=== PATIENT | male | born 1960 | race Caucasian/White ===

== ENCOUNTER 2022-07-04 17:31 | Inpatient (IN) | payer BC, OTHER ==
[~2022-07-04] VITALS: Ht 175.3 cm; Wt 79.6 kg
[2022-07-04 17:38] VITALS: BP_SYST 137
--- NOTE | 2022-07-04 17:41 | NUR ---
Patient triaged and placed in waiting room. VSS and patient appears in no acute distress at this time. Accompanied by , awaiting available bed, and Dr. Tima CRUZ notified of need for MSE.
[2022-07-04] MEDS ORDERED: KETOROLAC TROMETHAMINE 30 MG VIAL IM ONE (18:15)
--- NOTE | 2022-07-04 21:46 | NUR ---
Patient to ER bed 07 to gown for evaluation. Side rails up. Report given to EVY ALBRECHT
[2022-07-04] MEDS ORDERED: NACL 0.9% 1,000 ML IV ONE (23:15)
[2022-07-04] MEDS ORDERED: KETOROLAC TROMETHAMINE 30 MG VIAL IVP ONE (23:15)
--- NOTE | 2022-07-04 23:28 | NUR ---
# 20 gauge angiocath placed to RIGHT HAND. Use of asceptic technique. Opsite placed over site. Blood return noted. Blood for lab drawn from site. Flushed with 10 cc of normal saline. No evidence of infiltration noted. Patient tolerated well.
[2022-07-05 00:13] LABS: BILIRUBIN,URINE 1+ (NEGATIVE); BLOOD, URINE 1+ (NEGATIVE); CLARITY/URINE CLEAR (CLEAR); COLOR,URINE YELLOW (YELLOW); GLUCOSE,URINE NEGATIVE (NEGATIVE); KETONES,URINE 1+ (NEGATIVE); LEUKOCYTE ESTERASE ,URINE NEGATIVE (NEGATIVE); NITRITE, URINE NEGATIVE (NEGATIVE); PH,URINE 5.5 (5.0-8.0); PROTEIN URINE TRACE (NEGATIVE); UROBILINOGEN,URINE 0.2 (0.2-1.0)
[2022-07-05 00:58] LABS: BASOPHILS % (AUTO) 0.1 % (0.0-2.0); EOSINOPHILS % (AUTO) 0.1 % (0.0-4.0); HEMATOCRIT 42.6 % (36-54); HEMOGLOBIN 14.9 g/dL (14.0-18.0); LYMPHOCYTES # (AUTO) 0.9 K/uL (1.0-5.5); LYMPHOCYTES % (AUTO) 9.6 % (20.5-51.5); MEAN CORPUSCULAR HEMOGLOBIN 30 pg (27-31); MEAN CORPUSCULAR HGB CONC 35 % (32-36); MEAN CORPUSCULAR VOLUME 85 fL (79.0-98.0); MONOCYTES # (AUTO) 0.4 K/uL (0.0-1.0); NEUTROPHILS # (AUTO) 7.7 K/uL (1.8-7.7); NEUTROPHILS % (AUTO) 86.2 % (40.0-70.0); PLATELET COUNT (AUTO) 278 K/uL (130-430); RED CELL DISTRIBUTION WIDTH 13.3 % (9.0-15.0); WHITE BLOOD COUNT (AUTO) 8.9 K/uL (4.8-10.8)
[2022-07-05] MEDS ORDERED: D5/0.45 NS 1,000 ML IV SCH (01:15)
--- NOTE | 2022-07-05 01:26 | NUR ---
Awaiting bed availability at this time. Admitted under Dr. Jones. DX: Kidney stones. Patient requested to wash up first before the IVF administration. Patient reports tolerable abdominal pain rated 3/10. No s/s of distress observed.
--- NOTE | 2022-07-05 01:50 | NUR ---
Patient started on IVF D5 1/2 NS at 100 ml/hr, tolerating well. Awaiting bed availability.
--- NOTE | 2022-07-05 03:50 | NUR ---
Patient was transferred via [facility] to [place]/Tele in room 112 bed B. Patient ambulated from [facility] to his bed independently. Report given to EVY Portillo. Patient still reports mild abdominal pain but is tolerable. IV catheter gauge 20 on right hand remains intact and patent with IVF D5 1/2 NS at 100 ml/hr to continue. All needs attended. VS are within acceptable range.
[2022-07-05 03:56] VITALS: BP_SYST 124
--- NOTE | 2022-07-05 04:54 | NUR ---
Paged Dr. Jones. Christopher
[2022-07-05 05:00] LABS: CALCIUM 9.2 mg/dL (8.4-11.0); CREATININE 0.97 mg/dL (0.55-1.30); POTASSIUM 3.8 mmol/L (3.5-5.1)
[2022-07-05 05:01] LABS: ALBUMIN 3.9 g/dL (3.4-4.8); TOTAL BILIRUBIN 0.6 mg/dL (0.0-1.0)
[2022-07-05 07:00] VITALS: BP_SYST 124
[2022-07-05 08:00] VITALS: BP_SYST 124
[2022-07-05] MEDS ORDERED: ONDANSETRON HCL 4 MG/2 ML VIAL IVP PRN (10:45)
[2022-07-05] MEDS ORDERED: LORazepam 2 MG/ML VIAL IVP PRN (10:45)
[2022-07-05] MEDS ORDERED: IBUP-1970 PO (10:46)
[2022-07-05] MEDS ORDERED: TAMS-11 PO (10:46)
[2022-07-05] MEDS ORDERED: TRAM50TA2 PO (10:46)
[2022-07-05 12:16] VITALS: BP_SYST 128
[2022-07-05 12:28] VITALS: BP_SYST 128
--- NOTE | 2022-07-05 13:03 | NUR ---
PATIENT AOX4, BRP. DENIES ANY PAIN. APPROPRIATE MOOD, NONDISTRESS. RIGHT HAND SL REMOVED-NO BLEEDING NOTED. SENT ALL PERSONAL BELONGINGS WITH PATIENT. DISCHARGE INSTRUCTIONS GIVEN TO PATIENT. PATIENT TO MANAGER LIGHTING DC MEDS AT OWN PHARMACY. SIGNIFICANT OTHER AT BEDSIDE. PATIENT INFORMED AND AWARE TO FOLLOW UP WITH PCP WITHIN 1-5DAYS OF DC FROM HOSPITAL-PT VERBALIZED UNDERSTANDING. NO OTHER QUESTIONS ASKED AT THIS TIME IF HAVE FEVER GREATER THAN 101 AND UNRELIEVED BY ANTIPYRETIC MEDS/CHILLS CP SOB PALPITATIONS--CALL 911 OR GO TO NEAREST ER/UC. PATIENT VERBALIZED UNDERSTANDING.
--- NOTE | 2022-07-05 14:54 | NUR ---
dispo code 01
== END 2022-07-05 13:15 | disposition home or self-care (01) | DRG 694 ==
LOC: SED 17:31 → SMU 07-05 01:06
PROVIDERS: ADMIT Preventive Medicine Preventive Medicine/Occupational Environmental Medicine; ATTEND Preventive Medicine Preventive Medicine/Occupational Environmental Medicine
DX: N13.2 Hydronephrosis with renal and ureteral calculous obstruction (principal); Z20.822 Contact with and (suspected) exposure to COVID-19; I10 Essential (primary) hypertension; R73.9 Hyperglycemia, unspecified; E78.5 Hyperlipidemia, unspecified
CPT/HCPCS: 36415; 76376; 80053; 81003; 85025; 96361; 96372; 96374; 99285; J1885; J7030